=== PATIENT | female | born 1970 | race Caucasian/White ===

== ENCOUNTER 2016-09-27 08:11 | Day surgery (SDC) | payer OTHER ==
[~2016-09-27] VITALS: Ht 167.6 cm; Wt 86.6 kg
[~2016-09-27 08:11] MED LIST: AMOX TR-K CLV1 EAC4 PO; BUPROPION HCL150 M2 PO; CARVEDILOL25 MG PO; CATAPRES-TTS 11 EACH TD; FIORICET,ESG1 TABLET PO; HYDROCODON-ACE1 EAC7 PO; HYDROCODON-ACE1 EAC8 PO; IBUPROFEN800 MG PO; IRON18 MG PO; JANUVIA100 MG PO; LIDODERM 5% P1 PATCH TD; LIPITOR20 MG PO; LOVENOX80 MG/0.8 SC; LYRICA100 MG PO; LYRICA50 MG PO; LYRICA75 MG PO; METFORMIN HCL500 M1 PO; NEURONTIN100 MG PO; NEURONTIN300 MG PO; NICODERM CQ1 EAC2 TD; OXYCODONE-ACET1 EACH PO; SERTRALINE HCL50 MG PO; SYNTHROID50 MCG PO; TOPROL XL100 MG PO; TRADJENTA5 MG PO; TRAZODONE HCL50 MG PO; XARELTO15 MG PO; ZESTORETIC 20-1 EAC1 PO; ZOLOFT100 MG PO; ZOLOFT50 MG PO
== END 2016-09-27 08:15 | disposition home or self-care (01) ==
LOC: PAIN 08:11 → SDC 08:45 → PAIN 08:45
PROC: 3E0T3BZ Introduction of Anesthetic Agent into Peripheral Nerves and Plexi, Percutaneous Approach (ICD-10-PCS; principal; 2016-09-27)
DX: M47.896 Other spondylosis, lumbar region (principal); Z53.9 Procedure and treatment not carried out, unspecified reason

== ENCOUNTER 2017-03-14 09:42 | Day surgery (SDC) | payer OTHER ==
[~2017-03-14] VITALS: Ht 170.2 cm; Wt 81.6 kg
[~2017-03-14 09:42] MED LIST changes: +ENDOCET 7.5-321 EACH PO; +NICODERM CQ1 EAC1 TD; +TOPROL XL200 MG PO; +TOPROL XL50 MG PO; +WELLBUTRIN XL300 MG PO
[2017-03-14 10:24] LABS: POINT-OF-CARE METER ID UU13113694; POINT-OF-CARE USER ID AHSRSCSLC11
== END 2017-03-14 11:30 | disposition home or self-care (01) ==
LOC: PAIN 09:42 → SDC 10:15 → PAIN 11:30
PROVIDERS: Anesthesiology Pain Medicine
PROC: 015B3ZZ Destruction of Lumbar Nerve, Percutaneous Approach (ICD-10-PCS; principal; 2017-03-14)
DX: M47.816 Spondylosis without myelopathy or radiculopathy, lumbar region (principal); M54.5 Low back pain; F41.9 Anxiety disorder, unspecified; Z88.8 Allergy status to other drugs, medicaments and biological substances
CPT/HCPCS: 82948; J1030; J2250; J3010; S0020

== ENCOUNTER 2017-03-21 09:52 | Day surgery (SDC) | payer OTHER ==
[~2017-03-21] VITALS: Ht 170.2 cm; Wt 81.7 kg
[2017-03-21 10:51] LABS: POINT-OF-CARE METER ID UU13113694
== END 2017-03-21 11:10 | disposition home or self-care (01) ==
LOC: PAIN 09:52 → SDC 10:15 → PAIN 10:15
PROVIDERS: Anesthesiology Pain Medicine
DX: M47.816 Spondylosis without myelopathy or radiculopathy, lumbar region (principal); M54.5 Low back pain; M54.12 Radiculopathy, cervical region; M79.1 Myalgia; I11.0 Hypertensive heart disease with heart failure; E78.5 Hyperlipidemia, unspecified; G47.33 Obstructive sleep apnea (adult) (pediatric); I25.10 Atherosclerotic heart disease of native coronary artery without angina pectoris; I49.01 Ventricular fibrillation; E11.9 Type 2 diabetes mellitus without complications; Z83.3 Family history of diabetes mellitus; Z82.5 Family history of asthma and other chronic lower respiratory diseases; Z95.810 Presence of automatic (implantable) cardiac defibrillator; Z79.01 Long term (current) use of anticoagulants; F41.8 Other specified anxiety disorders; Z79.891 Long term (current) use of opiate analgesic; Z87.891 Personal history of nicotine dependence
CPT/HCPCS: 82948; J1030; J2250; J3010; S0020

== ENCOUNTER 2017-04-16 18:58 | Emergency (ER) | payer OTHER ==
[~2017-04-16] VITALS: Ht 170.2 cm; Wt 83.1 kg
[2017-04-16 20:30] LABS: CHLORIDE 108 mEq/L (99-109); POTASSIUM 3.7 mEq/L (3.7-5.4); SODIUM 142 mEq/L (136-147)
[2017-04-16 20:32] LABS: GLUCOSE 114 mg/dL (70-99)
[2017-04-16 20:33] LABS: ANION GAP 11 MEQ/L (2-14)
[2017-04-16 20:35] LABS: HEMATOCRIT 45.4 % (36.0-46.0); MCH 28.2 PG (29.0-34.0); MCHC 31.7 G/DL (30.0-36.0); MCV 88.8 FL (83-99); MEAN PLAT.VOLUME 11.8 uM^3 (9.5-12.4); PLATELET COUNT 128 K/uL (156-360); RBC DIS.WIDTH-CV 15.9 % (11.8-14.6); RBC DIS.WIDTH-SD 51.6 % (39-53); RED BLOOD COUNT 5.11 M/uL (3.80-5.20); WHITE BLOOD COUNT 1.8 K/uL (4.1-10.2)
[2017-04-16 20:36] LABS: GFR ESTIMATE (CALCULATED) 47 mL/min/
[2017-04-16 20:37] LABS: UREA NITROGEN (BUN) 23 mg/dL (9-23)
[2017-04-16 20:51] LABS: EOSINOPHIL (%) 0.6 % (0-5); INSTRUMENT ABS NEUTROPHIL CT 1.5 K/uL; LYMPHOCYTE COUNT 0.2 K/uL (1.0-2.8); MONOCYTE (%) 0 % (3-12); NEUTROPHIL (%) 87.1 % (45-76); NEUTROPHIL COUNT 1.5 K/uL (1.8-6.4)
[2017-04-16 21:06] LABS: TOTAL BILIRUBIN 0.5 mg/dL (0.0-1.0)
[2017-04-16 21:07] LABS: ALKALINE PHOSPHATASE 106 IU/L (3-129)
[2017-04-16 21:10] LABS: DIRECT BILIRUBIN 0.3 mg/dL (0.0-0.3)
[2017-04-16 21:11] LABS: LIPASE 44 U/L (1.0-51.0)
[2017-04-16 22:52] LABS: ADD MIUA? YES; BILIRUBIN NEGATIVE; BLOOD MODERATE; COLOR YELLOW ((YELLOW)); GLUCOSE (STRIP) NEGATIVE; KETONES NEGATIVE; LEUKOCYTES SMALL; NITRITE NEGATIVE; PROTEIN (STRIP) 100; UROBILINOGEN 0.2 MG/DL (0.2-1.0)
[2017-04-16 23:29] LABS: EPITHELIAL CELLS RARE /HPF; MUCUS RARE /LPF; UCUL ADDED? YES
[2017-04-16 23:30] LABS: BACTERIA 1+ /HPF; CASTS NONE SEEN /LPF; CRYSTALS NONE SEEN; RED BLOOD CELLS 30-40 /HPF (0-5); WHITE BLOOD CELLS 15-20 /HPF (0-5)
[2017-04-16] MEDS ORDERED: ZOFRAN4 MG PO (23:52)
[2017-04-16] MEDS ORDERED: KEFLEX500 MG PO (23:52)
[2017-04-17 00:03] LABS: SPECIFIC GRAVITY 1.076 (1.000-1.030)
[2017-04-17 00:10] VITALS: BP 111/62
[2017-04-17] MEDS ORDERED: AMBIEN10 MG PO (22:46)
[2017-04-18] MEDS ORDERED: CIPRO500 MG PO (15:04)
== END 2017-04-17 00:11 | disposition left against medical advice (07) ==
LOC: EME 18:58
PROVIDERS: Physician Assistant
DX: N39.0 Urinary tract infection, site not specified (principal); R00.0 Tachycardia, unspecified; D72.819 Decreased white blood cell count, unspecified; E87.2 Acidosis; E11.9 Type 2 diabetes mellitus without complications
CPT/HCPCS: 71020; 74177; 80048; 80076; 81003; 83605; 83690; 85025; 85027; 87040; 87077; 87086; 87186; 87801; 99281; 99285; J0696; J2405; J7030; J7050

== ENCOUNTER 2017-04-17 21:00 | Inpatient (IN) | payer OTHER ==
[~2017-04-17] VITALS: Ht 170.2 cm; Wt 85.3 kg
[~2017-04-17 21:00] MED LIST changes: +KEFLEX500 MG PO; +ZOFRAN4 MG PO
[2017-04-17 22:27] LABS: EOSINOPHIL (%) 1.6 % (0-5); EOSINOPHIL COUNT 0.1 K/uL (0-0.3); HEMATOCRIT 36.8 % (36.0-46.0); IMMATURE GRANULOCYTE (%) 0.5 % (0.0-0.7); INSTRUMENT ABS NEUTROPHIL CT 5.4 K/uL; LYMPHOCYTE COUNT 0.5 K/uL (1.0-2.8); MCH 28.5 PG (29.0-34.0); MCHC 31.8 G/DL (30.0-36.0); MCV 89.5 FL (83-99); MONOCYTE (%) 3.3 % (3-12); MONOCYTE COUNT 0.2 K/uL (0-0.8); NEUTROPHIL (%) 86.4 % (45-76); NEUTROPHIL COUNT 5.4 K/uL (1.8-6.4); RBC DIS.WIDTH-CV 16.2 % (11.8-14.6); RBC DIS.WIDTH-SD 53.1 % (39-53); RED BLOOD COUNT 4.11 M/uL (3.80-5.20); WHITE BLOOD COUNT 6.3 K/uL (4.1-10.2)
[2017-04-17 22:33] LABS: CHLORIDE 109 mEq/L (99-109); POTASSIUM 3.7 mEq/L (3.7-5.4); SODIUM 142 mEq/L (136-147)
[2017-04-17 22:36] LABS: ANION GAP 8 MEQ/L (2-14)
[2017-04-17 22:37] LABS: TOTAL BILIRUBIN 0.4 mg/dL (0.0-1.0)
[2017-04-17 22:39] LABS: ALKALINE PHOSPHATASE 82 IU/L (3-129); GFR ESTIMATE (CALCULATED) 51 mL/min/
[2017-04-17 22:40] LABS: UREA NITROGEN (BUN) 19 mg/dL (9-23)
[2017-04-17 22:44] LABS: GLUCOSE 248 mg/dL (70-99)
[2017-04-17] MEDS ORDERED: AMBIEN10 MG PO (22:46)
[2017-04-17 22:48] LABS: QUANTITATIVE HCG 4.9 MIU/ML
[2017-04-18 00:01] LABS: HEMATOLOGY COMMENT 1 SMEAR COMPATIBLE; MEAN PLAT.VOLUME 12.8 uM^3 (9.5-12.4); PLAT.SUFFICIENCY DECREASED
[2017-04-18 00:03] LABS: PLATELET COUNT 82 K/uL (156-360)
[2017-04-18 02:52] VITALS: BP 172/80
[2017-04-18 06:45] LABS: POINT-OF-CARE METER ID UU14208750
[2017-04-18 07:47] VITALS: BP 172/94
[2017-04-18 11:26] VITALS: BP 134/66
[2017-04-18 11:39] LABS: POINT-OF-CARE METER ID UU14208750
[2017-04-18] MEDS ORDERED: CIPRO500 MG PO (15:04)
[2017-04-18 15:30] LABS: POINT-OF-CARE METER ID UU14208750
== END 2017-04-18 15:42 | disposition home or self-care (01) | DRG 690 ==
LOC: EME 21:00 → EDOF 04-18 00:24 → ENRESERV 04-18 00:27 → 2EASTP 04-18 03:03
PROVIDERS: Emergency Medicine; Hospitalist
DX: N10 Acute pyelonephritis (principal); R78.81 Bacteremia; B96.4 Proteus (mirabilis) (morganii) as the cause of diseases classified elsewhere; D69.59 Other secondary thrombocytopenia; N20.1 Calculus of ureter; I25.10 Atherosclerotic heart disease of native coronary artery without angina pectoris; I10 Essential (primary) hypertension; E11.65 Type 2 diabetes mellitus with hyperglycemia; I42.1 Obstructive hypertrophic cardiomyopathy; E03.9 Hypothyroidism, unspecified; F17.210 Nicotine dependence, cigarettes, uncomplicated; Z86.74 Personal history of sudden cardiac arrest; I25.2 Old myocardial infarction; Z79.84 Long term (current) use of oral hypoglycemic drugs; Z86.718 Personal history of other venous thrombosis and embolism; Z86.79 Personal history of other diseases of the circulatory system; Z95.810 Presence of automatic (implantable) cardiac defibrillator; F32.9 Major depressive disorder, single episode, unspecified
CPT/HCPCS: 80053; 81003; 82948; 83605; 84702; 85025; 87040; 99281; 99284; J0696; J1815; J7030; J7050

== ENCOUNTER 2018-02-28 06:53 | Observation (INO) | payer OTHER ==
[~2018-02-28] VITALS: Ht 167.6 cm; Wt 74.2 kg
[~2018-02-28 06:53] MED LIST changes: +AMBIEN10 MG PO; +CIPRO500 MG PO; +SYNTHROID100 MCG PO; -SYNTHROID50 MCG PO
[2018-02-28 07:51] LABS: BASOPHIL (%) 0.3 % (0-1); EOSINOPHIL (%) 1.3 % (0-5); EOSINOPHIL COUNT 0.1 K/uL (0-0.3); HEMATOCRIT 43.7 % (36.0-46.0); HEMOGLOBIN 14.6 G/DL (11.9-15.5); IMMATURE GRANULOCYTE (%) 0.2 % (0.0-0.7); LYMPHOCYTE (%) 19.1 % (15-42); LYMPHOCYTE COUNT 1.7 K/uL (1.0-2.8); MCH 29.4 PG (29.0-34.0); MCHC 33.4 G/DL (30.0-36.0); MCV 88.1 FL (83-99); MONOCYTE (%) 6.1 % (3-12); MONOCYTE COUNT 0.5 K/uL (0-0.8); NEUTROPHIL COUNT 6.4 K/uL (1.8-6.4); PLATELET COUNT 131 K/uL (156-360); RBC DIS.WIDTH-CV 15.2 % (11.8-14.6); RBC DIS.WIDTH-SD 49.1 % (39-53); RED BLOOD COUNT 4.96 M/uL (3.80-5.20); WHITE BLOOD COUNT 8.7 K/uL (4.1-10.2)
[2018-02-28 07:55] LABS: INTER. NORMALIZED RATIO 1.1
[2018-02-28 08:07] LABS: ALBUMIN 3.8 g/dL (3.2-4.8); CHLORIDE 106 mEq/L (99-109); POTASSIUM 3.9 mEq/L (3.7-5.4); SODIUM 140 mEq/L (136-147)
[2018-02-28 08:10] LABS: GLUCOSE 333 mg/dL (70-99); TOTAL PROTEIN 6.5 g/dL (6.4-8.3)
[2018-02-28 08:11] LABS: TROP-I INTERPRETATION NEGATIVE; TROPONIN-I 0.01 ng/mL (0.0-0.30)
[2018-02-28 08:12] LABS: TOTAL BILIRUBIN 0.3 mg/dL (0.0-1.0)
[2018-02-28 08:13] LABS: ALKALINE PHOSPHATASE 90 IU/L (3-129); CREATININE 0.9 mg/dL (0.6-1.3); GFR ESTIMATE (CALCULATED) > 59 mL/min/
[2018-02-28 08:14] LABS: UREA NITROGEN (BUN) 13 mg/dL (9-23)
[2018-02-28 08:15] LABS: AST (GOT) 31 IU/L (2-34)
[2018-02-28 08:16] LABS: ALT (GPT) 28 IU/L (3-49)
[2018-02-28] MEDS ORDERED: AMLODIPINE BESYL5 MG PO (09:51)
[2018-02-28] MEDS ORDERED: METFORMIN HCL500 M1 PO (09:51)
[2018-02-28] MEDS ORDERED: TYLENOL REGULA325 MG PO (09:52)
[2018-02-28 14:34] VITALS: BP 148/70
[2018-02-28 14:40] LABS: TROP-I INTERPRETATION NEGATIVE; TROPONIN-I < 0.01 ng/mL (0.0-0.30)
[2018-02-28 15:29] VITALS: BP 140/70
[2018-02-28 20:55] LABS: TROP-I INTERPRETATION NEGATIVE; TROPONIN-I < 0.01 ng/mL (0.0-0.30)
[2018-02-28 23:38] VITALS: BP 141/60
[2018-03-01 04:44] VITALS: BP 185/85
[2018-03-01 05:00] VITALS: BP 148/70
[2018-03-01 08:11] VITALS: BP 185/85
[2018-03-01 09:37] LABS: CHLORIDE 101 MEQ/L (99-109); CREATININE 0.9 MG/DL (0.6-1.3); GFR ESTIMATE (CALCULATED) > 59 mL/min/; POTASSIUM 4.5 MEQ/L (3.7-5.4); SODIUM 135 MEQ/L (136-147); UREA NITROGEN (BUN) 14 mg/dL (9-23)
[2018-03-01 09:41] LABS: GLUCOSE 572 mg/dL (70-99)
[2018-03-01] MEDS ORDERED: AMITRIPTYLINE H10 MG PO (09:58)
[2018-03-01] MEDS ORDERED: ANTIVERT25 MG PO (09:58)
[2018-03-01] MEDS ORDERED: PREDNISONE20 MG PO (09:58)
[2018-03-01 11:21] VITALS: BP 137/65
[2018-03-01 11:23] LABS: HEMOGLOBIN A1c (GLYCOHEMOGLOB) 12.8 % (Below 5.7)
== END 2018-03-01 12:08 | disposition home or self-care (01) ==
LOC: EME 06:53 → EDOF 11:53 → 4SOUTH 11:53 → EDOF 11:53 → ENRESERV 11:55 → 4SOUTH 14:31
PROVIDERS: Emergency Medicine; Hospitalist; Internal Medicine
DX: R42 Dizziness and giddiness (principal); E11.65 Type 2 diabetes mellitus with hyperglycemia; T38.0X5A Adverse effect of glucocorticoids and synthetic analogues, initial encounter; I42.1 Obstructive hypertrophic cardiomyopathy; Z86.74 Personal history of sudden cardiac arrest; Z95.810 Presence of automatic (implantable) cardiac defibrillator; I10 Essential (primary) hypertension; F17.200 Nicotine dependence, unspecified, uncomplicated; Z86.718 Personal history of other venous thrombosis and embolism; Z87.442 Personal history of urinary calculi; Z79.84 Long term (current) use of oral hypoglycemic drugs
CPT/HCPCS: 70450; 80048; 80053; 82948; 83036; 84484; 85025; 85610; 93005; 99281; 99284; G0378; J1644; J1815; J2405; J2930; J7030; J7040